=== PATIENT | female | born 1955 | race Caucasian/White ===

== ENCOUNTER 2017-01-12 15:18 | Outpatient (CLI) ==
[2014-12-05 14:25] VITALS: BMI 40.9
--- NOTE | 2017-01-12 15:52 | DI ---
EXAM: Radiographs, left knee HISTORY: Left knee pain. COMPARISON: None available. TECHNIQUE: Four views. FINDINGS: Bone mineralization is decreased. Moderate to severe patellofemoral compartment joint sp aron narrowing and marginal osteophyte formation noted. Medial and lateral compartment joint spaces a re preserved although moderate marginal osteophyte formation is present. Loose bodies are present i n the posterior knee joint and suprapatellar region. No erosive changes are seen. Soft tissues are unremarkable. IMPRESSION: Moderate to severe osteoarthritis with intra-articular loose bodies.
--- NOTE | 2017-01-12 15:52 | DI ---
Exam: Three x-rays of the lumbar spine. Comparison: 04/13/2014. Reason for exam: Pain. FINDINGS: Multilevel degenerative disease is seen throughout the lumbar spine with anterior osteoph yte formation and intervertebral body disc space height loss most notably L5, S1. The vertebral bod y heights are well maintained. There is a normal appearing lumbar lordotic curve. Atherosclerotic disease is seen within the abdomen. Impression: 1. Multilevel degenerative disease with intervertebral body disc space height narrowing most notabl y at L5-S1. 2. No acute fracture or listhesis.
--- NOTE | 2017-01-12 15:53 | DI ---
Exam: Two x-rays of the right hip. Comparison: None available. Reason for exam: Pain. FINDINGS: No acute fracture or dislocation. The femoral head articulates with the bony acetabulum with subchondral cyst formation. Degenerative disease is seen in the symphysis pubis. Impression: No acute fracture or dislocation in the right hip with degenerative disease.
== END 2017-01-12 15:19 | disposition home or self-care (01) ==
LOC: RAD 15:18
PROVIDERS: ATTEND Internal Medicine
DX: M25.551 Pain in right hip (principal); M25.562 Pain in left knee; M54.9 Dorsalgia, unspecified

== ENCOUNTER 2017-03-19 06:32 | Outpatient (CLI) ==
[2014-12-05 14:25] VITALS: BMI 40.9
--- NOTE | 2017-03-23 13:43 | ECHO2D ---
Date of Exam: 03/19/17 Ordering Physician: ANTONIETA DUBON Reason for Echo: SURGICAL CLEARANCE, HYPERTENSION, LVH, DM M-Mode Normal Adult Results LV Dimensions Normal Adult Results AoV Opening excursions >1.6 >1.6 LVEDD-base- 3.5-5.8 4.7 Ao root dimensions 2.0-3.7 3.3 LVESD-base- 3.1-4.6 L. Atrium dimensions 1.9-3.8 4.7 Post. Wall thickness 0.8-1.1 1.2 IV septum (thickness) 0.7-1.2 1.2 Post. Wall excursion 0.72-1.3 NORMAL Septal motion NORMAL Systolic motion R. Ventricular cavity 1.5-2.0 NORMAL LVEF 60% 68% Paradoxical septal wall motion NORMAL 2-D : NORMAL LEFT VENTRICULAR CONTRACTILITY--NORMAL VALVES--NO EFFUSION, NO THROMBUS, ENLARGED LEFT ATRIAL CAVITY, NORMAL LEFT VENTRICLE SIZE M-MODE: MV: NORMAL AV: NORMAL TV: NORMAL PV: CHAMBER SIZE: ENLARGED LEFT ATRIAL CAVITY WALL MOTION: NORMAL PERICARDIUM: NORMAL INTERPRETATION: 1. LEFT VENTRICULAR HYPERTROPHY WITH ENLARGED LEFT ATRIAL CAVITY 2. NORMAL LEFT VENTRICULAR CONTRACTILITY 3. NORMAL VALVES MTDD
== END 2017-03-19 06:33 | disposition home or self-care (01) ==
LOC: CAR 06:32
PROVIDERS: ATTEND Internal Medicine
DX: Z01.810 Encounter for preprocedural cardiovascular examination (principal); E11.9 Type 2 diabetes mellitus without complications; I10 Essential (primary) hypertension; I51.7 Cardiomegaly

== ENCOUNTER 2017-03-26 06:29 | Outpatient (CLI) ==
[2014-12-05 14:25] VITALS: BMI 40.9
[2017-03-26] MEDS ORDERED: ATROPINE SULFATE PFS ONE (07:16)
[2017-03-26] MEDS ORDERED: DOBUTAMINE 250 ML IV ONE (07:16)
== END 2017-03-26 06:30 | disposition home or self-care (01) ==
LOC: CAR 06:29
PROVIDERS: ATTEND Internal Medicine
DX: Z01.810 Encounter for preprocedural cardiovascular examination (principal); E11.9 Type 2 diabetes mellitus without complications; I10 Essential (primary) hypertension; I51.7 Cardiomegaly

== ENCOUNTER 2017-03-29 14:46 | Outpatient (CLI) ==
[2014-12-05 14:25] VITALS: BMI 40.9
== END 2017-03-29 14:47 | disposition home or self-care (01) ==
LOC: LAB 14:46
PROVIDERS: ATTEND Internal Medicine
DX: E11.9 Type 2 diabetes mellitus without complications (principal)
CPT/HCPCS: 36415; 83036

== ENCOUNTER 2017-06-07 13:00 | Outpatient (RCR) ==
[2014-12-05 14:25] VITALS: BMI 40.9
--- NOTE | 2017-05-24 08:49 | RS.OPPTDN ---
Subjective Date of Note: 05/20/17 Visit #: 10 Date of Evaluation: 04/29/17 Payer Source: Insurance Treatment Diagnosis: OA L knee Current Subjective/complaints:: Patient says she is getting better with walking without her cane and not taking prescription pain meds prior to appt. She did take Tylenol earlier. Pain Assessment - Pain Description Pain Location: L knee Pain Description: sharp/aching pain Current Pain Intensity: "MILD" Interventions - Exercise/Activities/Manual Therapy Exercises/Activities: A/P joint mobs for the L knee and patellar mobs. Increased stretching to the knee flex/ext and ext over bolster. Quad sets, multiple reps. Heel slides multiple reps with overpressures. SLR independently , 3s/10reps. Hip abduction independently 2s/10reps. Hooklying hip abd with green tband, DF and ham curls with progressed to green tband, heel slides with 2 # ankle weight. SAQ increased to 2# 3x10. In sitting, LAQ increased to 2#, stretching into knee flexion, contract/relax multiple reps. Grades I-III joint mobs. No bike due to patient feeling bad. She later c/o's sugar low and no further therex performed. Patient sits to rest, provided grape juice and crackers. Patient admitted to improved symptoms. Total minutes of Exercise: 38 Manual Therapy: NA HOME EXERCISE PROGRAM: pt given written HEP with TKR ex. Added heel slides in sitting and quad sets, Q2H. - Charges Total Direct Minutes: 38 Total Treatment Time: 38 Procedures billed for this date of service:: ex3 Assessment: Patient progressing well with all therex demo 97 degrees AA knee flexion in supine with heel slide. Good patellar mobility. She became lightheaded and c/o's decreased sugar level. After she rested and had some juice, she improved. Patient Education: Home Exercise Program Patient demonstrates compliance with HEP?: Yes Short Term Goals Goal #1: AAROM L knee flex 90 ext -5 Goal to be met by: 05/13/17 Progress towards Goal:: Met Goal #2: pt amb with cane with improved heel strike/toe off independently in dept Goal to be met by: 05/13/17 Progress towards Goal:: Met Goal #3: pt rate pain <5/10 with activity Goal to be met by: 05/13/17 Progress towards Goal:: Progressing Progress towards Goal:: Progressing Teacher Lip Reading Goals Goal #1: pt with improved strength BLE 4 to 4+/5 and independent with HEP Goal to be met by: 06/07/17 Progress towards goal: Progressing Goal #2: AROM L knee flex 110 ext 0 Goal to be met by: 06/07/17 Progress towards goal: Progressing Goal #3: pt amb community distances without AD independently Goal to be met by: 06/07/17 Progress towards goal: Progressing Goal #4: pt ascend/descend 5 steps with HR independently Goal to be met by: 06/07/17 Plan PLAN OF CARE EXPIRES ON:: 06/07/17 ORDER # VISITS AND/OR THROUGH DATE: 06/07/17 with new order dated 05/10/17 x 4 more weeks PLAN: Progress Exercises
--- NOTE | 2017-05-25 16:41 | RS.OPPTDN ---
Subjective Date of Note: 05/25/17 Visit #: 11 Date of Evaluation: 04/29/17 Payer Source: Insurance Treatment Diagnosis: OA L knee Current Subjective/complaints:: Patient c/o increased pain last night and swelling. She says she felt her knee popped and she had to take a pain pill. Reports she was not doing anything "out of the ordinary." She has had very little sleep because of it, but was able to drive to PT. She had used ice and HEP at home to improve her symptoms.t Pain Assessment - Pain Description Pain Location: L knee Pain Description: Tightness, Throbbing, Acute Pain Description: sharp/aching pain Current Pain Intensity: Elevated with tightness to the biceps femoris and swelling to the medial kn Interventions - Exercise/Activities/Manual Therapy Exercises/Activities: A/P joint mobs for the L knee and patellar mobs. Directional massage and soft tissue mobs to the L HS. Stretching to the knee flex/ext and ext over bolster. Quad sets, multiple reps. Heel slides multiple reps with overpressures. SLR independently, 3s/10reps. Hooklying hip abd with green tband, DF and ham curls with progressed to green tband, heel slides with 2 # ankle weight. SAQ increased to # 3x10. In sitting, LAQ increased to 2#, stretching into knee flexion, contract/relax multiple reps. Grades I-III joint mobs. Sitting at EOB for LAQ 3#, Contract/relax techniques multiple reps. Ended with standing therex: ham curls, hip abd, hip flexion, hip ext (2# ankle weight) and heel raises all x 10 reps. Minisquats x 10 reps. Total minutes of Exercise: 46 Manual Therapy: NA HOME EXERCISE PROGRAM: pt given written HEP with TKR ex. Added heel slides in sitting and quad sets, Q2H. - Charges Total Direct Minutes: 46 Total Treatment Time: 46 Procedures billed for this date of service:: ex3 Assessment: Patient presents with elevated pain and tightness to the L knee/ hamstrings. She recalls having to take pain meds last night, but did not take prior to PT appt. She demo decreased swelling and improved flexibility with treatment today allowing for better amb and better danisha of standing therex. Patient Education: Body/Joint mechanics, Home Exercise Program Patient demonstrates compliance with HEP?: Yes Short Term Goals Goal #1: AAROM L knee flex 90 ext -5 Goal to be met by: 05/13/17 Progress towards Goal:: Met Goal #2: pt amb with cane with improved heel strike/toe off independently in dept Goal to be met by: 05/13/17 Progress towards Goal:: Met Goal #3: pt rate pain <5/10 with activity Goal to be met by: 05/13/17 Progress towards Goal:: Progressing Progress towards Goal:: Progressing Wallpaper Installer Goals Goal #1: pt with improved strength BLE 4 to 4+/5 and independent with HEP Goal to be met by: 06/07/17 Progress towards goal: Progressing Goal #2: AROM L knee flex 110 ext 0 Goal to be met by: 06/07/17 Progress towards goal: Progressing Goal #3: pt amb community distances without AD independently Goal to be met by: 06/07/17 Progress towards goal: Progressing Goal #4: pt ascend/descend 5 steps with HR independently Goal to be met by: 06/07/17 Plan PLAN OF CARE EXPIRES ON:: 06/07/17 ORDER # VISITS AND/OR THROUGH DATE: 06/07/17 with new order dated 05/10/17 x 4 more weeks PLAN: Continue to progress therex to the L knee to gain knee flexion and improve strength.
--- NOTE | 2017-05-28 09:10 | RS.OPPTDN ---
Subjective Date of Note: 05/28/17 Visit #: 12 Date of Evaluation: 04/29/17 Payer Source: Insurance Treatment Diagnosis: OA L knee Current Subjective/complaints:: Patient reports that her pain and swelling are much better than last session. She says she feels good today and walking much better as well. Pain Assessment - Pain Description Pain Location: L knee Pain Description: Tightness, Throbbing, Acute Pain Description: sharp/aching pain Current Pain Intensity: slight, more with aggressive stretching Interventions - Exercise/Activities/Manual Therapy Exercises/Activities: A/P joint mobs for the L knee and patellar mobs. More aggressive stretching for knee flexion today. HC stretching, ankle over bolster for extension. Quad sets, multiple reps. Heel slides multiple reps with overpressures. SLR 1 1/2# 2s/10reps. Hip abduction independently with red tband 2s/10reps. Hooklying hip abd with green tband, DF and ham curls with progressed to green tband, heel slides with 2 # ankle weight. SAQ increased to 3# 3x10. In sitting, LAQ increased to 3#, stretching into knee flexion, contract/relax multiple reps. Grades I-III joint mobs. Ended with stationary bike with increased speed by patient and no compensation from the L hip. Total minutes of Exercise: 49 Manual Therapy: NA HOME EXERCISE PROGRAM: pt given written HEP with TKR ex. Added heel slides in sitting and quad sets, Q2H. - Charges Total Direct Minutes: 49 Total Treatment Time: 49 Procedures billed for this date of service:: ex3 Assessment: Patient with improved pain level today and reduced swelling. She demo improved flexibility with joint mobs today and ext is now 0. She is only taking pain meds about 1-2 times daily (morning and bedtime). She is ambulating with equal WB now without AD. We will take flexion measurement tomorrow. Patient Education: Body/Joint mechanics, Home Exercise Program Patient demonstrates compliance with HEP?: Yes Short Term Goals Goal #1: AAROM L knee flex 90 ext -5 Goal to be met by: 05/13/17 Progress towards Goal:: Met Goal #2: pt amb with cane with improved heel strike/toe off independently in dept Goal to be met by: 05/13/17 Progress towards Goal:: Met Goal #3: pt rate pain <5/10 with activity Goal to be met by: 05/13/17 Progress towards Goal:: Progressing Progress towards Goal:: Progressing Cloth Finishing Range Operator Goals Goal #1: pt with improved strength BLE 4 to 4+/5 and independent with HEP Goal to be met by: 06/07/17 Progress towards goal: Progressing Goal #2: AROM L knee flex 110 ext 0 Goal to be met by: 06/07/17 Progress towards goal: Progressing Goal #3: pt amb community distances without AD independently Goal to be met by: 06/07/17 Progress towards goal: Progressing Goal #4: pt ascend/descend 5 steps with HR independently Goal to be met by: 06/07/17 Plan PLAN OF CARE EXPIRES ON:: 06/07/17 ORDER # VISITS AND/OR THROUGH DATE: 06/07/17 with new order dated 05/10/17 x 4 more weeks PLAN: Progress therex to improve L knee flexion and strength
--- NOTE | 2017-05-31 08:44 | RS.OPPTDN ---
Subjective Date of Note: 05/31/17 Date of Evaluation: 04/29/17 Payer Source: Insurance Treatment Diagnosis: OA L knee Current Subjective/complaints:: Patient reports improved flexibility to the L knee with treatment this week. She says she is eager to return to her house, but family is unsure if she is ready. Pain Assessment - Pain Description Pain Location: L knee Pain Description: Tightness, Throbbing, Acute Pain Description: sharp/aching pain Current Pain Intensity: slight, more with aggressive stretching Interventions - Exercise/Activities/Manual Therapy Exercises/Activities: Continued with A/P joint mobs for the L knee and patellar mobs. More aggressive stretching for knee flexion today. HC stretching, ankle over bolster for extension. Quad sets, multiple reps. Heel slides multiple reps with overpressures. SLR 1 1/2# 2s/10reps. Hip abduction independently with red tband 2s/10reps. Hooklying hip abd with green tband, DF and ham curls with progressed to green tband, heel slides with 2 # ankle weight. SAQ increased to 3# 3x10. In sitting, LAQ 3#, stretching into knee flexion, contract/relax multiple reps. Grades I-III joint mobs. Ended with stationary bike with increased speed by patient and no compensation from the L hip. Measurements taken. Total minutes of Exercise: 45 Manual Therapy: NA HOME EXERCISE PROGRAM: pt given written HEP with TKR ex. Added heel slides in sitting and quad sets, Q2H. - Objective Findings Observations,measurements,etc.: 98 degrees flexion actively (supine). 103 degrees flexion passively (supine) - Charges Total Direct Minutes: 45 Total Treatment Time: 45 Procedures billed for this date of service:: ex3 Assessment: Patient demo improved L knee flexion this week with reduced swelling and pain. She is demo equal WB with amb independently. Patient Education: Home Exercise Program Patient demonstrates compliance with HEP?: Yes Short Term Goals Goal #1: AAROM L knee flex 90 ext -5 Goal to be met by: 05/13/17 Progress towards Goal:: Met Goal #2: pt amb with cane with improved heel strike/toe off independently in dept Goal to be met by: 05/13/17 Progress towards Goal:: Met Goal #3: pt rate pain <5/10 with activity Goal to be met by: 05/13/17 Progress towards Goal:: Met Progress towards Goal:: Progressing Medical Staffing Coordinator Goals Goal #1: pt with improved strength BLE 4 to 4+/5 and independent with HEP Goal to be met by: 06/07/17 Progress towards goal: Progressing Goal #2: AROM L knee flex 110 ext 0 Goal to be met by: 06/07/17 Progress towards goal: Progressing Goal #3: pt amb community distances without AD independently Goal to be met by: 06/07/17 Progress towards goal: Progressing Goal #4: pt ascend/descend 5 steps with HR independently Goal to be met by: 06/07/17 Plan PLAN OF CARE EXPIRES ON:: 06/07/17 ORDER # VISITS AND/OR THROUGH DATE: 06/07/17 with new order dated 05/10/17 x 4 more weeks PLAN: Continue therex to improve L knee flexibility and strength x 1 more week per order.
--- NOTE | 2017-06-02 13:42 | RS.OPPTDN ---
Subjective Date of Note: 05/21/17 Visit #: 10 Date of Evaluation: 04/29/17 Payer Source: Insurance Treatment Diagnosis: OA L knee Current Subjective/complaints:: Patient admits to being able to stand longer and ambulate further distances before she has discomfort. She is consistent with HEP at this time and using ice often. Pain Assessment - Pain Description Pain Location: L knee Pain Description: sharp/aching pain Current Pain Intensity: "MILD" Interventions - Exercise/Activities/Manual Therapy Exercises/Activities: . A/P joint mobs for the L knee and patellar mobs. Increased stretching to the knee flex/ext and ext over bolster. Quad sets, multiple reps. Heel slides multiple reps with overpressures. SLR independently , 3s/10reps. Hip abduction independently 2s/10reps. Hooklying hip abd with green tband, DF and ham curls with progressed to green tband, heel slides with 2 # ankle weight. SAQ increased to 2# 3x10. In sitting, LAQ increased to 2#, stretching into knee flexion, contract/relax multiple reps. Grades I-III joint mobs. Began standing therex: ham curls, hip abd, hip flexion and heel raises all x 10 reps. Patient begins with stationary bike x 5 mins for/retro intermittent full revolutions Measurements taken. Total minutes of Exercise: 47 Manual Therapy: NA HOME EXERCISE PROGRAM: pt given written HEP with TKR ex. Added heel slides in sitting and quad sets, Q2H. - Charges Total Direct Minutes: 47 Total Treatment Time: 47 Procedures billed for this date of service:: ex3 Assessment: Patient progressing with strength to the L LE and demo improved swelling. Maintains low pain level and increasing activities at home such as standing longer and walking more equally on bilateral LE's. Patient Education: Home Exercise Program, Education of Plan of Care Patient demonstrates compliance with HEP?: Yes Short Term Goals Goal #1: AAROM L knee flex 90 ext -5 Goal to be met by: 05/13/17 Progress towards Goal:: Met Goal #2: pt amb with cane with improved heel strike/toe off independently in dept Goal to be met by: 05/13/17 Progress towards Goal:: Met Goal #3: pt rate pain <5/10 with activity Goal to be met by: 05/13/17 Progress towards Goal:: Met Progress towards Goal:: Progressing Grain Picker Goals Goal #1: pt with improved strength BLE 4 to 4+/5 and independent with HEP Goal to be met by: 06/07/17 Progress towards goal: Progressing Goal #2: AROM L knee flex 110 ext 0 Goal to be met by: 06/07/17 Progress towards goal: Progressing Goal #3: pt amb community distances without AD independently Goal to be met by: 06/07/17 Progress towards goal: Progressing Goal #4: pt ascend/descend 5 steps with HR independently Goal to be met by: 06/07/17 Plan PLAN OF CARE EXPIRES ON:: 06/07/17 ORDER # VISITS AND/OR THROUGH DATE: 06/07/17 with new order dated 05/10/17 x 4 more weeks PLAN: Patient to continue to improve knee flexion and strength in accordance with LTG.
--- NOTE | 2017-06-02 16:44 | RS.OPPTDN ---
Subjective Date of Note: 06/02/17 Visit #: 15 Date of Evaluation: 04/29/17 Payer Source: Insurance Treatment Diagnosis: OA L knee Current Subjective/complaints:: Patient states she has had some increase in stiffness today possibly due to the damp weather. She reports slight ache, but feels she is still doing well. Pain Assessment - Pain Description Pain Location: L knee Pain Description: Tightness, Aching Pain Description: sharp/aching pain Current Pain Intensity: "MILD" Interventions - Exercise/Activities/Manual Therapy Exercises/Activities: A/P joint mobs for the L knee and patellar mobs. Increased stretching to the knee flex/ext and ext over bolster. Quad sets, multiple reps. Heel slides multiple reps with overpressures. SLR independently , 3s/10reps. Hip abduction independently 2s/10reps. Hooklying hip abd with green tband, DF and ham curls with progressed to blue tband, heel slides progressed to 3# ankle weight. SAQ increased to 3# 3x10. In sitting, LAQ increased to 3#, stretching into knee flexion, contract/relax multiple reps. Grades I-III joint mobs. Standing therex: ham curls, hip abd, hip flexion and heel raises all 3#x 10 reps. Leg presses 15# 2 sets/10 reps, 30# 2 sets, 10 reps. Patient ends with stationary bike x 8 mins for/retro intermittent full revolutions at moderate speed. Total minutes of Exercise: 56 Manual Therapy: NA HOME EXERCISE PROGRAM: pt given written HEP with TKR ex. Added heel slides in sitting and quad sets, Q2H. - Charges Total Direct Minutes: 56 Total Treatment Time: 56 Procedures billed for this date of service:: ex4 Assessment: Patient progressing and danisha Leg press weights well today. Maintaining only mild swelling to the lateral portion of the L knee today. Some decrease in WBing to the L LE with ambulation into dept possibly due to weather changes/ache/stiffness, however, this improved and became more equal WB when leaving. Patient demonstrates compliance with HEP?: Yes Short Term Goals Goal #1: AAROM L knee flex 90 ext -5 Goal to be met by: 05/13/17 Progress towards Goal:: Met Goal #2: pt amb with cane with improved heel strike/toe off independently in dept Goal to be met by: 05/13/17 Progress towards Goal:: Met Goal #3: pt rate pain <5/10 with activity Goal to be met by: 05/13/17 Progress towards Goal:: Met Progress towards Goal:: Progressing Medical Affairs Manager Goals Goal #1: pt with improved strength BLE 4 to 4+/5 and independent with HEP Goal to be met by: 06/07/17 Progress towards goal: Progressing Goal #2: AROM L knee flex 110 ext 0 Goal to be met by: 06/07/17 Progress towards goal: Progressing Goal #3: pt amb community distances without AD independently Goal to be met by: 06/07/17 Progress towards goal: Progressing Goal #4: pt ascend/descend 5 steps with HR independently Goal to be met by: 06/07/17 Plan PLAN OF CARE EXPIRES ON:: 06/07/17 ORDER # VISITS AND/OR THROUGH DATE: 06/07/17 with new order dated 05/10/17 x 4 more weeks PLAN: continue for therex x 2 more sessions per continuation order.
--- NOTE | 2017-06-08 08:41 | RS.OPPTDN ---
Subjective Date of Note: 06/07/17 Visit #: 17 Date of Evaluation: 04/29/17 Payer Source: Insurance Treatment Diagnosis: OA L knee Current Subjective/complaints:: Patient says she is pleased with how well she is doing. She c/o only low pain today, which she has taken a pain pill several hours ago. She is anticipating returning to work and hopes she can stand long enough for her entire shift. The only difficulty remains is going up steps beyond the 4-5 she has at her son's house. She uses her cane only when ascending/descending steps since there is no rail. Pain Assessment - Pain Description Pain Location: L knee Interventions - Exercise/Activities/Manual Therapy Exercises/Activities: A/P joint mobs for the L knee and patellar mobs. Continued with stretching to the knee flex/ext and ext over bolster. Quad sets , multiple reps. Heel slides multiple reps with overpressures. SLR 1 1/2#, 3s/ 10reps. Hip abduction green tband 2s/10reps. Hooklying hip abd with green tband, DF and ham curls with progressed to blue tband, heel slides progressed to 3# ankle weight. SAQ increased to 3# 3x10. In sitting, LAQ 3#, stretching into knee flexion, contract/relax multiple reps. Standing therex: ham curls, hip abd, hip flexion, hip ext, and heel raises all 3#x 10 reps. Leg presses 15 # 2 sets/10 reps, 30# 2 sets, 10 reps. LE Functional Reassessment. Total minutes of Exercise: 55 Manual Therapy: NA HOME EXERCISE PROGRAM: pt given written HEP with TKR ex. Added heel slides in sitting and quad sets, Q2H. - Charges Total Direct Minutes: 55 Total Treatment Time: 55 Procedures billed for this date of service:: ex4 Assessment: Patient demo improvement per subjective reports, measurements of ROM , and LE Functional Scale. She ambulates with equal WB today and has been progressed to independent amb for several weeks. She takes pain meds only in the morning and at bedtime. Swelling is reduced and mild around the medial aspect of the knee joint. Ascending more than 4-5 steps is the only difficulty she is having at this point. Patient Education: Education of diagnosis, Home Exercise Program, Home Safety Patient demonstrates compliance with HEP?: Yes Short Term Goals Goal #1: AAROM L knee flex 90 ext -5 Goal to be met by: 05/13/17 Progress towards Goal:: Met Goal #2: pt amb with cane with improved heel strike/toe off independently in dept Goal to be met by: 05/13/17 Progress towards Goal:: Met Goal #3: pt rate pain <5/10 with activity Goal to be met by: 05/13/17 Progress towards Goal:: Met Seamless Tube Drawer Goals Goal #1: pt with improved strength BLE 4 to 4+/5 and independent with HEP Goal to be met by: 06/07/17 Progress towards goal: Met Goal #2: AROM L knee flex 110 ext 0 Goal to be met by: 06/07/17 Progress towards goal: Partially Met Comments: 109 today AROM, 111 Passive Goal #3: pt amb community distances without AD independently Goal to be met by: 06/07/17 Progress towards goal: Met Goal #4: pt ascend/descend 5 steps with HR independently Goal to be met by: 06/07/17 Progress towards goal: Partially Met (Patient is able to ascend/descend 4-5 steps using her cane since her home does not have a rail) Plan PLAN OF CARE EXPIRES ON:: 06/07/17 ORDER # VISITS AND/OR THROUGH DATE: 06/07/17 with new order dated 05/10/17 x 4 more weeks PLAN: Patient to attend follow up with MD next Wednesday, Jun 14. May benefit from attending 2-3 more weeks to focus on stairs.
--- NOTE | 2017-06-08 08:55 | RS.OPPTDN ---
Subjective Date of Note: 06/04/17 Visit #: 16 Date of Evaluation: 04/29/17 Payer Source: Insurance Treatment Diagnosis: OA L knee Current Subjective/complaints:: Patient says pain is not bad today and is able to ascend/descend steps with her cane because her son does not have railing at his house. She says she is hoping to go home and stay next Wednesday. Pain Assessment - Pain Description Pain Location: L knee with stretching Interventions - Exercise/Activities/Manual Therapy Exercises/Activities: A/P joint mobs for the L knee and patellar mobs. Increased stretching to the knee flex/ext and ext over bolster. Quad sets, multiple reps. Heel slides multiple reps with overpressures. SLR 1 1/2#, 3s/ 10reps. Hip abduction with knee extended green tband 2s/10reps. Hooklying hip abd with green tband, DF and ham curls with progressed to blue tband, heel slides progressed to 3# ankle weight. SAQ increased to 3# 3x10. In sitting, LAQ 3#, stretching into knee flexion, contract/relax multiple reps. Grades I- III joint mobs. Standing therex: ham curls, hip abd, hip flexion and heel raises all 3#x 10 reps. Leg presses 15# 2 sets/10 reps, 30# 2 sets, 10 reps. Patient ends with stationary bike x 8 mins for/retro intermittent full revolutions at moderate speed. Total minutes of Exercise: 47 Manual Therapy: NA HOME EXERCISE PROGRAM: pt given written HEP with TKR ex. Added heel slides in sitting and quad sets, Q2H. - Charges Total Direct Minutes: 47 Total Treatment Time: 47 Procedures billed for this date of service:: ex3 Patient Education: Education of diagnosis, Home Exercise Program Patient demonstrates compliance with HEP?: Yes Short Term Goals Goal #1: AAROM L knee flex 90 ext -5 Goal to be met by: 05/13/17 Progress towards Goal:: Met Goal #2: pt amb with cane with improved heel strike/toe off independently in dept Goal to be met by: 05/13/17 Progress towards Goal:: Met Goal #3: pt rate pain <5/10 with activity Goal to be met by: 05/13/17 Progress towards Goal:: Met Detention Goals Goal #1: pt with improved strength BLE 4 to 4+/5 and independent with HEP Goal to be met by: 06/07/17 Progress towards goal: Progressing Goal #2: AROM L knee flex 110 ext 0 Goal to be met by: 06/07/17 Progress towards goal: Partially Met Comments: 107 in supine with hip at 90 Goal #3: pt amb community distances without AD independently Goal to be met by: 06/07/17 Progress towards goal: Met Goal #4: pt ascend/descend 5 steps with HR independently Goal to be met by: 06/07/17 Progress towards goal: Progressing Plan PLAN OF CARE EXPIRES ON:: 06/07/17 ORDER # VISITS AND/OR THROUGH DATE: 06/07/17 with new order dated 05/10/17 x 4 more weeks PLAN: Progress exercises to improve knee flexion and strength x 1 more visit per order and per LTG dates.
== END 2017-06-17 ==
PROVIDERS: ATTEND Orthopaedic Surgery
DX: Z96.652 Presence of left artificial knee joint (principal)

== ENCOUNTER 2018-03-23 10:49 | Observation (INO) ==
[2018-03-23] MEDS ORDERED: NITROSTAT SL PRN (11:17)
[2018-03-23] MEDS ORDERED: VISTARIL INJ IM PRN (11:17)
[2018-03-23] MEDS ORDERED: ZOFRAN 4 MG/2 ML IVP PRN (11:17)
[2018-03-23] MEDS ORDERED: MORPHINE 4 MG/ML VIAL IVP PRN (11:17)
[2018-03-23] MEDS ORDERED: TYLENOL PO PRN (11:17)
[2018-03-23] MEDS ORDERED: ATROPINE SULFATE PFS IVP PRN (11:17)
[2018-03-23 12:00] VITALS: BMI 41.3
--- NOTE | 2018-03-23 13:47 | DI ---
EXAM: Two views of the chest. History: Cough. Comparison: Chest radiograph 09/30/2014 Findings: Heart size is normal. No focal consolidation. No appreciable pleural fluid and no pneumo thorax. No acute osseous abnormalities. Degenerative changes of the bilateral glenohumeral joints a nd worse on the left. Impression: No acute cardiopulmonary process
[2018-03-23] MEDS: PROTONIX PO SCH ×2 (14:20→18:33)
--- NOTE | 2018-03-23 14:23 | CT ---
EXAM: CT of the abdomen pelvis with and without contrast History: Gastroenteritis. Comparison: CT abdomen 12/21/2008 Technique: Multiplanar CT images through the abdomen pelvis were obtained with and without the admin istration of IV contrast. Findings: Lung bases are free of consolidation. No acute osseous abnormalities. Severe degenerative disc disease at L5-S1. No renal stones and no hydronephrosis. No ureteral calculi. The liver is fatty. No discrete gallst ones identified by CT. Spleen is unremarkable. No renal masses. Pancreas and adrenal glands are no rmal. The appendix is not seen. No bladder wall thickening. Scattered colonic stool. Short segmen t wall thickening involving the splenic flexure of the colon. Stomach is not well distended. No obv ious gastric wall thickening. No bowel obstruction. No free air and no ascites. Uterus is not seen . Impression: 1. Short segment wall thickening involving the splenic flexure of the colon could represent colitis versus neoplastic etiology. Recommend further evaluation with colonoscopy. 2. Hepatic steatosis. 3. Severe degenerative disc disease at L5-S1.
[2018-03-23] MEDS: SODIUM CHLORIDE 1,000 ML IV SCH (14:31)
[2018-03-23] MEDS: HUMULIN N SUBCUT SCH (17:14)
[2018-03-23] MEDS ORDERED: NON-FORMULARY MEDICATION (Lisinopril [Zestril] 20 MG) PO SCH (21:00)
[2018-03-23] MEDS: ELAVIL PO SCH (21:53)
[2018-03-23] MEDS: PRAVACHOL PO SCH (21:54)
[2018-03-23] MEDS: NORCO 7.5-325 PO SCH (21:54)
[2018-03-23] MEDS: XANAX PO SCH (21:54)
[2018-03-23] MEDS: NEURONTIN PO SCH (21:54)
[2018-03-23] MEDS: ZESTRIL PO SCH (21:54)
[2018-03-23] MEDS: ULTRAM PO SCH (21:55)
[2018-03-23] MEDS: HUMULIN R SUBCUT PRN (23:01)
[2018-03-24] MEDS: SODIUM CHLORIDE 1,000 ML IV SCH ×3 (00:54→12:50)
[2018-03-24] MEDS: PROTONIX PO SCH ×2 (05:36→16:29)
[2018-03-24] MEDS: ZESTRIL PO SCH ×2 (08:58→20:16)
[2018-03-24] MEDS: ROCEPHIN 1 GM in SODIUM CHLORIDE 50 ML IV SCH (08:58)
[2018-03-24] MEDS: NEURONTIN PO SCH ×2 (08:58→20:16)
[2018-03-24] MEDS: ZIAC 5-6.25 MG PO SCH (08:58)
[2018-03-24] MEDS: NORCO 7.5-325 PO SCH ×2 (08:59→20:16)
[2018-03-24] MEDS: FLAGYL PO SCH ×2 (08:59→20:15)
[2018-03-24] MEDS: ULTRAM PO SCH ×2 (08:59→20:16)
[2018-03-24] MEDS: ASPIRIN EC PO SCH (08:59)
[2018-03-24] MEDS: XANAX PO SCH ×2 (08:59→20:16)
[2018-03-24] MEDS: HUMULIN N SUBCUT SCH ×2 (09:00→16:30)
[2018-03-24] MEDS: HUMULIN R SUBCUT PRN ×3 (10:59→20:46)
--- NOTE | 2018-03-24 11:47 | PCM.PROG ---
Attending Provider: ATTENDING PROVIDER: Dr. ANTONIETA BOYD This patient is seen with Pearl Caballero, Nurse Practitioner. DATE OF SERVICE: 03/24/18 SUBJECTIVE: This 63 year old WHITE/ F was hospitalized 03/23/18. The patient is lying in bed, alert. Kidney function is okay, blood pressure is still low. CT scan showed colitis with positive blood in stool. REVIEW OF SYSTEMS: CONSTITUTIONAL: Weakness. Hypotension. No night sweats. No malaise, lethargy. No fever or chills. HEENT: Eyes: No visual changes. No eye pain. No eye discharge. ENT: No runny nose. No epistaxis. No sinus pain. No odynophagia. No congestion. RESPIRATORY: No cough, no congestion. No hemoptysis. No shortness of breath. CARDIOVASCULAR: No angina symptoms. No CHF symptoms. No atypical chest pain for CAD. No palpitations. No orthopnea.. GASTROINTESTINAL: Positive for melena. No abdominal pain. No nausea or vomiting. No diarrhea or constipation. No hematemesis. No hematochezia. GENITOURINARY: No urgency. No frequency. No dysuria. No hematuria. No obstructive symptoms. No discharge. No pain. No significant abnormal bleeding. MUSCULOSKELETAL: No musculoskeletal pain; no joint swelling. NEUROLOGICAL: Awake, alert, oriented to time, place and person. No headache. No neck pain. No syncope. No seizures. No dizziness. PSYCHIATRIC: Not anxious. No depression. No suicidal thoughts. No homicidal thoughts. SKIN: No rash. No lesions. No wounds. ENDOCRINE: No unexplained weight loss. No weight gain. HEMATOLOGIC/LYMPHATIC: No anemia. No purpura. No petechiae. No prolonged or excessive bleeding. No palpable lymph nodes. PHYSICAL EXAMINATION: GENERAL: The patient is awake, alert and oriented, lying in bed in no distress. VITAL SIGNS: Temperature 97.8 F, Pulse 68, Respiratory Rate 16, BP 100/58, Pulse Ox 96% HEENT: Head normocephalic, atraumatic. Eyes: Extraocular muscles are intact. Pupils are equal, round and reactive to light and accommodation. Ears: No lesions. Nose appeared normal. Throat: No exudate or erythema. Pallor positive. NECK: Supple. No JVD, no carotid bruit. No lymphadenopathy or thyromegaly. LUNGS: Diminished breath sounds. Clear to auscultation. Percussion note normal. Chest symmetrical. HEART: S1, S2, no S3. No murmurs. No cyanosis or clubbing. No ascites. Pulses: Dorsalis pedis and posterior tibial pulses +1 to +2 both sides. ABDOMEN: Soft. Non-tender. Bowel sounds active. No CVA tenderness. No mass felt. EXTREMITIES: No edema. Full range of motion of all extremities, equal. NEUROLOGIC: No focal deficit. Cranial nerves II through XII are grossly intact. No headache, no double vision or headache. SKIN: Not dry. Intact. Turgor-normal. LYMPHATIC: No palpable lymph nodes/no lymphedema. MUSCULOSKELETAL: Normal joints with no swelling. Muscle tone is normal. LAB REVIEW: 03/24/18 04:30 03/24/18 04:30 03/24/18 04:30: Sodium 138, Potassium 4.2, Chloride 105, Carbon Dioxide 29, Anion Gap 8.2, BUN 17, Creatinine 0.89, Estimated GFR (MDRD) 64.00, BUN/ Creatinine Ratio 19.10, Glucose 133 H, Calcium 9.0, Total Bilirubin 0.3, AST 20 , ALT 16, Alkaline Phosphatase 87, Total Protein 6.2 L, Albumin 3.2 L, Globulin 3.0, Albumin/Globulin Ratio 1.07 03/24/18 04:30: WBC 12.83 H, RBC 4.00 L, Hgb 11.1 L, Hct 34.4 L, MCV 86.0, MCH 27.8, MCHC 32.3, RDW Coeff of Lucian 12.2, Plt Count 306, Immature Gran % (Auto) 2.9, Neut % (Auto) 55.4, Lymph % (Auto) 28.0, [place] % (Auto) 7.8, Eos % (Auto) 5.1, Baso % (Auto) 0.8, Immature Gran # (Auto) 0.4, Neut # (Auto) 7.1 H, Lymph # (Auto) 3.6 H, [place] # (Auto) 1.0, Eos # (Auto) 0.7, Baso # (Auto) 0.1 03/23/18 19:40: Stl Occult Blood (IFOB) Positive, Stool Occult Blood #2 No specimen received, Stool Occult Blood #3 No specimen received 03/23/18 18:59: Total Creatine Kinase 32, Troponin I < 0.012 03/23/18 13:15: Urine Color Yellow, Urine Clarity Slightly, Urine pH 5.5, Ur Specific [place] 1.015, Urine Protein Negative, Urine Glucose (UA) 1+, Urine Ketones Negative, Urine Blood Trace-intact, Urine Nitrite Negative, Urine Bilirubin Negative, Urine Urobilinogen 0.2, Ur Leukocyte Esterase 3+, Urine Microscopic WBC Tntc, Ur Squamous Epith Cells Tntc, Urine Bacteria 2+ 03/23/18 11:37: Sodium 136 L, Potassium 4.0, Chloride 101, Carbon Dioxide 29, Anion Gap 10.0, BUN 26 H, Creatinine 1.10, Estimated GFR (MDRD) 50.00, BUN/ Creatinine Ratio 23.63, Glucose 125 H, Calcium 9.3, Total Bilirubin 0.4, AST 15 , ALT 16, Alkaline Phosphatase 101, Total Creatine Kinase 35, Troponin I < 0.012 , Total Protein 6.9, Albumin 3.6, Globulin 3.3, Albumin/Globulin Ratio 1.09 03/23/18 11:37: WBC 14.47 H, RBC 4.20, Hgb 12.0, Hct 36.0 L, MCV 85.7, MCH 28.6 , MCHC 33.3, RDW Coeff of Lucian 12.4, Plt Count 334, Immature Gran % (Auto) 1.9, Neut % (Auto) 60.0, Lymph % (Auto) 26.1, [place] % (Auto) 7.7, Eos % (Auto) 3.7, Baso % (Auto) 0.6, Immature Gran # (Auto) 0.3, Neut # (Auto) 8.7 H, Lymph # ( Auto) 3.8 H, [place] # (Auto) 1.1, Eos # (Auto) 0.5, Baso # (Auto) 0.1 ASSESSMENT: 1. Acute gastroenteritis 2. Dehydration - improving 3. Anemia 4. Stool positive for blood 5. Hypotension 6. Diabetes mellitus Type 2 7. UTI, culture pending PLAN: 1. Discussed with the patient need for colonoscopy as an outpatient with Dr. Kessler, Stone Fabricator will schedule appointment. 2. Rocephin 1 gm IV daily. 3. Decrease IV fluids to 75 mg/hr. 4. Flagyl 500 mg b.i.d. p.o. Plan and coordination of the patient's care discussed in the presence of Stone Fabricator and nurse. CONDITION: Stable SCRIBED BY: FABIANO ZAPATA Paper Bag Making Machinist scribed while in presence of service performed by Dr. Boyd/Pearl Caballero APRN on 03/24/18 ([id number])
--- NOTE | 2018-03-24 15:32 | HP ---
DATE OF SERVICE: 03/23/18 REASON FOR HOSPITALIZATION/HISTORY OF PRESENT ILLNESS: This is a 63-year-old female who presented with vomiting and diarrhea which started over the weekend. She had fever, passed blood in stool, not sure if in emesis. She cannot eat, cannot hold head up and is weak and pale. PAST MEDICAL HISTORY: Hypertension History of GI bleed Right hip osteoarthritis DJD spine Diabetes mellitus Type 2 Obesity Metabolic syndrome Neuropathy Right hip bursitis PAST SURGICAL HISTORY: Tonsillectomy REVIEW OF SYSTEMS: CONSTITUTIONAL: Fever and fatigue. HEENT: No sinus drainage, no sore throat. RESPIRATORY: No cough, no hemoptysis. CARDIOVASCULAR: No atypical chest pain for coronary artery disease. No angina , CHF symptoms, palpitations or shortness of breath. GASTROINTESTINAL: Positive for melena, vomiting and diarrhea. No abdominal pain. No GERD. GENITOURINARY: No hematuria, no polyuria. BAG SHAKER: Positive for dizziness. No blackout, no headache, no double vision. MUSCULOSKELETAL: Osteoarthritis pain. ENDOCRINE: Weight loss of 3 lbs. SKIN: Not dry, no rash. PSYCHIATRIC: Not anxious, no depression, no suicidal thoughts, no homicidal thoughts. SOCIAL HISTORY: The patient quit smoking 10 years ago. . No alcohol use. Two children. Works at [employer]. FAMILY HISTORY: Father , age 53, cancer of the colon. Mother age 62, diabetes mellitus type 2, CHF. & brothers. one sister with diabetes mellitus, CVA and cardiac. MEDICATIONS: ASA 81 mg daily Protonix 40 mg daily Ultram 50 mg b.i.d. [place] 7.5/325 mg b.i.d. Elavil 25 mg one h.s. Novolin R - see protocol SQ t.i.d. with meal Xanax 0.5 mg b.i.d. Pravastatin 40 mg daily Ziac 5/6.25 one daily Zestril 20 mg b.i.d. Trulicity 1.5 mg one week Norvasc 5 mg on hold Neurontin 600 mg p.o. b.i.d. ALLERGIES: NEOSPORIN, PHENTERMINE, NSAID PHYSICAL EXAMINATION: V/S: Pulse 80, BP 102/72, temperature 98.1, 02 sat 98%. Weight 232.4 lbs; height 5'4". BMI 39.9. GENERAL APPEARANCE: Oriented times three. HEENT: Dry mucous membranes. Pale. NECK: No JVP, no bruits. RESPIRATORY: Lungs are clear. Decreased breath sounds. CARDIOVASCULAR: S1, S2, no S3, no murmurs. No cyanosis, clubbing. No ascites. GI/ABDOMEN: No tenderness. Bowel sounds are active. EXTREMITIES: No edema, pulses +1, equal. BAG SHAKER: Deep tendon reflexes, sensory, motor and gait all normal. RECTAL/PELVIC: Colonoscopy screening - Dr. Kessler, EGD 2014 ASSESSMENT: 1. ACUTE GASTROENTERITIS 2. DEHYDRATION 3. MELENA 4. B12 DEFICIENCY 5 LEFT TKR 04/04 DR. KIMBALL 6. HYPERTENSION/LVH 7. HISTORY OF GI BLEED 8. RIGHT HIP OSTEOARTHRITIS 9. DJD SPINE 10. OSTEOARTHRITIS MODERATE TO SEVERE 11. LEFT KNEE PAIN 12. DIABETES MELLITUS TYPW 2 11/03 (7.2) 13. OBESITY 14. METABOLIC SYNDROME 15. NEUROPATHY 16. RIGHT HIP BURSITIS PLAN: 1. IV NS at 100 cc/hr 2. Routine telemetry orders 3. UA 4. Stool for blood 5. Stool studies - culture/OP 6. CT scan of abdomen and pelvis with and without 7. CBC, CMP now and daily 8. Continue home medications 9. Sliding scale coverage 10. Protonix 40 mg p.o. b.i.d. 11. Chest x-ray 12. Regular bland diet 13. Zofran 4 mg IV q.6hr p.r.n. TIME SPENT: More than 70 minutes. MTDD
[2018-03-24] MEDS: ELAVIL PO SCH (20:16)
[2018-03-24] MEDS: PRAVACHOL PO SCH (20:16)
[2018-03-25] MEDS: SODIUM CHLORIDE 1,000 ML IV SCH (02:10)
[2018-03-25] MEDS: PROTONIX PO SCH (05:53)
[2018-03-25] MEDS: ROCEPHIN 1 GM in SODIUM CHLORIDE 50 ML IV SCH (08:41)
[2018-03-25] MEDS: XANAX PO SCH (08:41)
[2018-03-25] MEDS: FLAGYL PO SCH (08:42)
[2018-03-25] MEDS: NEURONTIN PO SCH (08:42)
[2018-03-25] MEDS: ZESTRIL PO SCH (08:42)
[2018-03-25] MEDS: NORCO 7.5-325 PO SCH (08:43)
[2018-03-25] MEDS: ZIAC 5-6.25 MG PO SCH (08:43)
[2018-03-25] MEDS: ULTRAM PO SCH (08:43)
[2018-03-25] MEDS: ASPIRIN EC PO SCH (08:44)
[2018-03-25] MEDS: HUMULIN N SUBCUT SCH (08:45)
[2018-03-25] MEDS ORDERED: NON-FORMULARY MEDICATION (Dulaglutide [Trulicity] 1.5 MG) SUBCUT SCH (09:00)
[2018-03-25 09:55] VITALS: BP 166/81; TEMP 98
--- NOTE | 2018-03-25 10:45 | PCM.PROG ---
Attending Provider: ATTENDING PROVIDER: Dr. ANTONIETA BOYD This patient is seen with Pearl Caballero, Nurse Practitioner. DATE OF SERVICE: 03/25/18 SUBJECTIVE: This 63 year old WHITE/ F was hospitalized 03/23/18. The patient is lying in bed resting comfortably. She had some lower abdominal pain last night. Still with weakness. Hemoglobin slightly lower today. She has been eating and has had no vomiting. REVIEW OF SYSTEMS: CONSTITUTIONAL: Weakness. No night sweats. No malaise, lethargy. No fever or chills. HEENT: Eyes: No visual changes. No eye pain. No eye discharge. ENT: No runny nose. No epistaxis. No sinus pain. No odynophagia. No congestion. RESPIRATORY: No cough, no congestion. No hemoptysis. No shortness of breath. CARDIOVASCULAR: No angina symptoms. No CHF symptoms. No atypical chest pain for CAD. No palpitations. No orthopnea.. GASTROINTESTINAL: Positive for abdominal pain. No nausea or vomiting. No diarrhea or constipation. Positive for melena. No hematemesis. No hematochezia. GENITOURINARY: No urgency. No frequency. No dysuria. No hematuria. No obstructive symptoms. No discharge. No pain. No significant abnormal bleeding. MUSCULOSKELETAL: No musculoskeletal pain; no joint swelling. NEUROLOGICAL: Awake, alert, oriented to time, place and person. No headache. No neck pain. No syncope. No seizures. No dizziness. PSYCHIATRIC: Not anxious. No depression. No suicidal thoughts. No homicidal thoughts. SKIN: No rash. No lesions. No wounds. ENDOCRINE: No unexplained weight loss. No weight gain. HEMATOLOGIC/LYMPHATIC: Anemia. No purpura. No petechiae. No prolonged or excessive bleeding. No palpable lymph nodes. PHYSICAL EXAMINATION: GENERAL: The patient is awake, alert and oriented, lying in bed in no distress. VITAL SIGNS: Temperature 98.2 F, Pulse 72, Respiratory Rate 16, BP 120/62, Pulse Ox 96% HEENT: Head normocephalic, atraumatic. Eyes: Extraocular muscles are intact. Pupils are equal, round and reactive to light and accommodation. Ears: No lesions. Nose appeared normal. Throat: No exudate or erythema. NECK: Supple. No JVD, no carotid bruit. No lymphadenopathy or thyromegaly. LUNGS: Diminished breath sounds bilaterally. Clear to auscultation. Percussion note normal. Chest symmetrical. HEART: S1, S2, no S3. No murmurs. No cyanosis or clubbing. No ascites. Pulses: Dorsalis pedis and posterior tibial pulses +1 to +2 both sides. ABDOMEN: Soft. Non-tender. Abdominal pain. Bowel sounds active. No CVA tenderness. No mass felt. EXTREMITIES: No edema. Full range of motion of all extremities, equal. NEUROLOGIC: No focal deficit. Cranial nerves II through XII are grossly intact. No headache, no double vision or headache. SKIN: Not dry. Intact. Turgor-normal. LYMPHATIC: No palpable lymph nodes/no lymphedema. MUSCULOSKELETAL: Normal joints with no swelling. Muscle tone is normal. LAB REVIEW: 03/25/18 04:40 03/25/18 04:40 03/25/18 04:40: Sodium 137, Potassium 4.2, Chloride 106, Carbon Dioxide 28, Anion Gap 7.2, BUN 13, Creatinine 0.79, Estimated GFR (MDRD) 74.00, BUN/ Creatinine Ratio 16.45, Glucose 130 H, Calcium 9.0, Total Bilirubin 0.1 L, AST 14, ALT 15, Alkaline Phosphatase 78, Total Protein 5.9 L, Albumin 3.1 L, Globulin 2.8, Albumin/Globulin Ratio 1.11 03/25/18 04:40: WBC 11.58 H, RBC 3.80 L, Hgb 10.7 L, Hct 32.7 L, MCV 86.1, MCH 28.2, MCHC 32.7, RDW Coeff of Lucian 12.2, Plt Count 297, Immature Gran % (Auto) 4.1, Neut % (Auto) 51.1, Lymph % (Auto) 30.1, [place] % (Auto) 7.3, Eos % (Auto) 6.5, Baso % (Auto) 0.9, Immature Gran # (Auto) 0.5, Neut # (Auto) 5.9, Lymph # ( Auto) 3.5 H, [place] # (Auto) 0.9, Eos # (Auto) 0.8 H, Baso # (Auto) 0.1 ASSESSMENT: 1. Acute gastroenteritis 2. Dehydration - improving 3. Anemia 4. Stool positive for blood 5. Hypotension, improving 6. Diabetes mellitus Type 2 7. UTI, culture pending PLAN: 1. Continue IV antibiotics 2. Decrease fluids to 50 mL/hr 3. Will get appointment with Dr. Kessler as outpatient today with appointment as soon as possible. Plan and coordination of the patient's care discussed in the presence of Petroleum Refinery Worker and nurse. CONDITION: Stable SCRIBED BY: FABIANO ZAPATA Railcar Switcher scribed while in presence of service performed by Dr. Boyd/Pearl Caballero APRN on 03/25/18 ([id number])
[2018-03-25] MEDS: HUMULIN R SUBCUT PRN (12:14)
--- NOTE | 2018-03-25 12:30 | CM.DICTOOL ---
ADMISSION: 03/23/18 10:49 DISCHARGE: 2017 DATE OF SERVICE: 03/25/18 FINAL DIAGNOSIS ACUTE GASTROENTERITIS DEHYDRATION COLITIS, POSITIVE STOOL FOR OCCULT BLOOD URINARY TRACT INFECTION, NO ORGANISM IDENTIFIED DM, TYPE 2 HYPERTENSION LVH GERD FATTY LIVER (CT ABD/PELVIS, 03/23/18) OSTEOARTHRITIS, HIPS AND SHOULDERS ANXIETY B12 DEFICIENCY DJD SPINE METABOLIC SYNDROME TOTAL LEFT KNEE ARTHROPLASTY, 04/04 HYSTERECTOMY LEFT SHOULDER SCOPE, 11/28 TONSILLECTOMY, 1972 APPY BENIGN RIGHT BREAST TUMOR REMOVED FORMER SMOKER, NONE SINCE 2007 LAST VITALS Temp Pulse Resp BP Pulse Ox 98 F 72 20 166/81 H 99 03/25/18 09:54 03/25/18 09:54 03/25/18 09:54 03/25/18 09:54 03/25/18 09:54 TAKE THESE MEDICATIONS AT HOME Hydrocodone Bitart/Acetaminophen ([place] 7.5-325) 1 tab PO BID [facility] Last Admin: 03/25/18 08:43 Dose: 1 tab Alprazolam (Xanax) 0.5 mg PO BID [facility] Last Admin: 03/25/18 08:41 Dose: 0.5 mg Amitriptyline HCl (Elavil) 25 mg PO BEDTIME [facility] Last Admin: 03/24/18 20:16 Dose: 25 mg Aspirin (Aspirin Ec) 81 mg PO DAILYWM [facility] Last Admin: 03/25/18 08:44 Dose: 81 mg Bisoprolol Fumarate/HCTZ (Ziac 5-6.25 Mg) 1 tab PO DAILY [facility] Last Admin: 03/25/18 08:43 Dose: 1 tab Gabapentin (Neurontin) 600 mg PO BID [facility] Last Admin: 03/25/18 08:42 Dose: 600 mg Insulin Human NPH (Humulin N) 55 unit SUBCUT BIDWM [facility] Last Admin: 03/25/18 08:45 Dose: 55 unit Insulin Human Regular (Humulin R) 0 unit SUBCUT TID PRN; Protocol PRN Reason: Hyperglycemica Last Admin: 03/24/18 20:46 Dose: 4 unit Lisinopril (Zestril) 20 mg PO BID [facility] Last Admin: 03/25/18 08:42 Dose: 20 mg Metronidazole (Flagyl) 500 mg PO Q12HR [facility] Last Admin: 03/25/18 08:42 Dose: 500 mg Pantoprazole Sodium (Protonix) 40 mg PO DAILY [facility] Last Admin: 03/25/18 05:53 Dose: 40 mg Pravastatin Sodium (Pravachol) 40 mg PO BEDTIME [facility] Last Admin: 03/24/18 20:16 Dose: 40 mg Tramadol HCl (Ultram) 50 mg PO BID [facility] Last Admin: 03/25/18 08:43 Dose: 50 mg ALLERGIES bacitracin [From Neosporin ([id number])] Adverse Reaction (Unknown, Verified 03/23/18 12:04) Unknown bacitracin zinc [From Neosporin ([id number])] Adverse Reaction (Unknown, Verified 03/23/18 12:04) Unknown neomycin sulfate [From Neosporin ([id number])] Adverse Reaction (Unknown, Verified 03/23/18 12:04) Unknown NSAIDS (Non-Steroidal Anti-Inflamma Adverse Reaction (Unknown, Verified 12:04) GI BLEED phentermine Adverse Reaction (Unknown, Verified 03/23/18 12:04) Unknown polymyxin B [From Neosporin ([id number])] Adverse Reaction (Unknown, Verified 03/23/18 12:04) Unknown DISCONTINUED MEDICATIONS STOP TRULICITY FOR NOW STOP AMLODIPINE NEW PRESCRIPTIONS: PROTONIX 40 MG DAILY FLAGYL 500 MG BID FOR 5 DAYS SMOKING: NOT APPLICABLE DISEASE SPECIFIC EDUCATION: DIET MEDICATIONS APPOINTMENTS LAB REVIEW: 03/25/18 04:40 03/25/18 04:40 03/25/18 04:40: Sodium 137, Potassium 4.2, Chloride 106, Carbon Dioxide 28, Anion Gap 7.2, BUN 13, Creatinine 0.79, Estimated GFR (MDRD) 74.00, BUN/ Creatinine Ratio 16.45, Glucose 130 H, Calcium 9.0, Total Bilirubin 0.1 L, AST 14, ALT 15, Alkaline Phosphatase 78, Total Protein 5.9 L, Albumin 3.1 L, Globulin 2.8, Albumin/Globulin Ratio 1.11 03/25/18 04:40: WBC 11.58 H, RBC 3.80 L, Hgb 10.7 L, Hct 32.7 L, MCV 86.1, MCH 28.2, MCHC 32.7, RDW Coeff of Lucian 12.2, Plt Count 297, Immature Gran % (Auto) 4.1, Neut % (Auto) 51.1, Lymph % (Auto) 30.1, Dane % (Auto) 7.3, Eos % (Auto) 6.5, Baso % (Auto) 0.9, Immature Gran # (Auto) 0.5, Neut # (Auto) 5.9, Lymph # ( Auto) 3.5 H, Dane # (Auto) 0.9, Eos # (Auto) 0.8 H, Baso # (Auto) 0.1 PLAN: DISCHARGE HOME DIET: [place] ACTIVITY: GRADUALLY RESUME TOLERATED NO WORK UNTIL SEEN AND RELEASED BY DR. DUBON AN APPOINTMENT IS SCHEDULED WITH DR. DUBON/EMILIA OWEN APRN ON AT 11:30 AM AN APPOINTMENT IS SCHEDULED WITH DR. SMITH/KELLY ON AT 9:15 AM CODE STATUS: FULL CODE MS. LIZ IS ALERT AND ORIENTED X 3. SHE IS INDEPENDENT WITH ACTIVITIES OF DAILY LIVING. SHE IS AMBULATORY WITHOUT ASSISTANCE, BUT HAS A STRAIGHT CANE TO USE WITH AMBULATION. SHE DENIES NAUSEA OR DIARRHEA. MEAL INTAKES ARE GOOD AT 100% FOR BREAKFAST TODAY. LIQUID INTAKE IS GOOD. HYDRATION STATUS HAS IMPROVED DURING HER HOSPITAL STAY. SKIN IS INTACT AND FREE OF DECUBITUS ULCERS, RASHES OR IRRITATION. ANTONIETA DUBON MD EMILIA OWEN APRN
--- NOTE | 2018-03-28 09:34 | DS ---
DATE OF SERVICE: 03/25/18 FINAL DIAGNOSIS: 1. Acute gastroenteritis 2. Dehydration 3. Colitis, Positive stool for occult blood 4. Urinary tract infection, no organism identified 5. Diabetes Mellitus type 2 6. Hypertension 7. LVH 8. GERD 9. Fatty liver (CT ABG/PELVIS, 03/23/18) 10.Osteoarthritis, hips and shoulders 11.Anxiety 12.B12 Deficiency 13.DJD spine 14.Metabolic syndrome 15.Total left knee arthroplasty, 04/04 16.Hysterectomy 17.Left shoulder scope, 11/28 18.Tonsillectomy, 1971 19.Appy 20.Benign right breast tumor removed 21.Former smoker, None since 2007 LAST VITALS: Temperature 98, pulse 72, respiratory 20, Blood pressure 166/81 and pulse ox 99% . DISCHARGE INSTRUCTIONS: Discharge home. An appointment is scheduled with Dr. Boyd/Pearl Caballero APRN on at 11:30am. An appointment is scheduled with Dr. Kessler/ KELLY on at 9:15am. Full code MEDICATIONS AT DISCHARGE: [place] 7.5-325 Po twice a day Xanax 0.5mg PO twice a day Elavil 25mg PO bedtime Aspirin 81mg PO daily Ziac 5-6.25 one tablet PO daily Neurontin 600mg PO twice a day Humulin 55 unit SUBCUT twice a day Humulin R SUBCUT three times a day Zestril 20mg PO twice a day Flagyl 500mg PO Q 12 hours Protonix 40mg PO daily Pravachol 40mg PO bedtime Ultram 50mg PO twice a day ALLERGIES: Bacitracin Bacitracin Neomycin NSAIDS Phentermine Polymyxin DISCONTINUED MEDICATIONS: Stop Trulicity for now Stop Amlodipine NEW PRESCRIPTIONS: Protonix 40mg daily Flagyl 500mg twice a day for 5 days DIET INSTRUCTIONS: [place] ACTIVITY: Gradually resume as tolerated. No work until seen and released by Dr. Boyd SMOKING: Not applicable DISEASE SPECIFIC EDUCATION: Diet Medications Appointments HOSPITAL COURSE: This is a 53 year old white female who is a direct admit from our office. She presented to our office on 03/23/18 after having vomiting and diarrhea for several days. She was very weak and pale with low blood pressure appearing to be dehydrated. She was hypotensive. She had a low grade fever of 99. She reported that while having the diarrhea she was having blood in her stool but states that she was having some blood stool intermittently prior to this episode of gastroenteritis so she was therefore admitted for acute gastroenteritis, dehydration, hypotension and melena. She was admitted and started on normal saline at 100cc an hour IV. Her BUN was elevated initially on day of admission which improved after IV rehydration. CT of the abdomen showed a splenic flexure thickening which could be a result of colitis neoplasm could not be ruled out. Her stool was also positive for blood. Due to these two findings have arranged for her to have an appointment with the FRANKLIN Kessler which she had seen years ago but had been refusing to repeat colonoscopy. She had agreed to do this. We have her an appointment on April 13 to schedule the colonoscopy. Her urine was abnormal at first with 2+ bacteria and nitrate positive however the culture showed no organism identified. She was placed on Rocephin 1 gram IV daily while she was here as well as Flagyl 500mg PO twice a day and Protonix 40mg twice a day. Today on day of discharge blood pressure is normal. She has been hypotensive still for the past two days. Today she is up to 126/51. She was able to be up and about in the room with no dizziness. Her IV fluids have been discontinued. She has not had any diarrhea or vomiting since being admitted as well as no fever. We will discharge her home on Flagyl 500mg PO twice a day for the next 7 days. Due to the culture being negative I will not place her on any antibiotics. She is going to get Zofran 4mg to take PRN Q 6 hours and continue on Protonix 40mg PO daily. Again she is to keep her appointment with Dr. Kessler on April 13 at 9:15. She has an appointment with us to followup next week and we will see how she is doing. She is going to be discharged home today in stable condition. TIME SPENT: More than 60 minutes. LORRAINE
== END 2018-03-25 14:25 | disposition home or self-care (01) ==
LOC: MEDSURG B 10:49 → INTOOBSV 10:49
PROVIDERS: ADMIT Internal Medicine; ATTEND Internal Medicine
DX: K52.9 Noninfective gastroenteritis and colitis, unspecified (principal); E86.0 Dehydration; K92.1 Melena; E53.8 Deficiency of other specified B group vitamins; I10 Essential (primary) hypertension; M16.11 Unilateral primary osteoarthritis, right hip; M47.9 Spondylosis, unspecified; E11.9 Type 2 diabetes mellitus without complications; E88.81 Metabolic syndrome and other insulin resistance; G62.9 Polyneuropathy, unspecified; E66.9 Obesity, unspecified; M71.9 Bursopathy, unspecified; I50.1 Left ventricular failure, unspecified; K21.9 Gastro-esophageal reflux disease without esophagitis
CPT/HCPCS: 36415; 80053; 81001; 82272; 82550; 82962; 84484; 85025; 87015; 87045; 87086; 87899; 93005; 93010; 97802

== ENCOUNTER 2018-05-04 13:54 | Outpatient (CLI) ==
--- NOTE | 2018-05-04 15:31 | US ---
EXAM: Ultrasound venous Doppler right and left lower extermity HISTORY: Leg pain, left greater than right, swelling COMPARISON: None TECHNIQUE: Venous duplex ultrasound of the right and left lower extremity was performed using color, lee-scale, and Doppler flow imaging. FINDINGS: There is normal color flow and compression of the right and left common femoral, greater s aphenous, profunda femoral, femoral, popliteal, peroneal, posterior tibial, and anterior tibial veins without evidence of intraluminal thrombus. Avascular fluid collection in the right popliteal fossa m easuring 0.4 x 0.5 x 1.4 cm, consistent with Flores's cyst. IMPRESSION: 1. No right or left lower extremity deep venous thrombosis. 2. Small right Flores's cyst.
== END 2018-05-04 13:55 | disposition home or self-care (01) ==
LOC: RAD 13:54
PROVIDERS: ATTEND Internal Medicine
DX: M79.605 Pain in left leg (principal); M79.604 Pain in right leg; M79.89 Other specified soft tissue disorders

== ENCOUNTER 2018-11-09 15:26 | Outpatient (CLI) ==
--- NOTE | 2018-11-10 07:41 | DI ---
EXAM: Lumbar spine three views HISTORY: Back pain FINDINGS: Moderately severe facet arthropathy of the lower lumbar spine. Mild degenerative endplate changes diffusely with moderate degenerative disc disease at L5/S1. No fracture, loss of vertebral body height or spondylolisthesis. No scoliosis. Sacroiliac joints are within normal limits. IMPRESSION: 1. Significant degenerative changes the spine, greater at the lumbosacral junction.
--- NOTE | 2018-11-10 07:43 | DI ---
EXAM: Thoracic spine three views HISTORY: Back pain FINDINGS: There is diffuse degenerative disc/endplate disease, mild to moderate in degree. No spond ylolisthesis, fracture or loss of vertebral body height. No scoliosis is seen. IMPRESSION: 1. Degenerative changes of the spine. No acute radiographic abnormality.
== END 2018-11-09 15:27 | disposition home or self-care (01) ==
LOC: RAD 15:26
PROVIDERS: ATTEND Internal Medicine
DX: M54.2 Cervicalgia (principal); M54.9 Dorsalgia, unspecified